=== PATIENT | female | born 1960 | race Caucasian/White ===

== ENCOUNTER → 2017-08-18 | Day surgery (SDC) | payer OTHER ==
[~2017-08-18] MED LIST: APREPITANT 40 MG CAP ONE; FLURBIPROFEN 0.03% OPHT SOLN 2.5 ML BTL ONE; HYALURONIDASE/LIDOCAINE/BUPIVACAINE 5 ML SYR ONE; MIDAZOLAM HCL 2 MG/2 ML VIAL ONE; ONDANSETRON HCL 4 MG/2 ML VIAL IV PUSH ONE; PHENYLEPHRINE HCL 2.5 % OPTH SOLN 15 ML BTL ONE; PROPOFOL 100 MG/10 ML INJ IV ONE; TETRACAINE 0.5% OPTH SOLN 15 ML BTL ONE; TROPICAMIDE 1% OPHT SOLN 15 ML BTL ONE; [UNRECOGNIZED DRUG - SUPPLY]
--- NOTE | 2017-08-22 09:16 | MP ---
cc: Jones Katz MD DATE OF OPERATION: 08/18/2017 PREOPERATIVE DIAGNOSIS: Proliferative diabetic retinopathy and nonclearing vitreous hemorrhage, left eye. POSTOPERATIVE DIAGNOSIS: Proliferative diabetic retinopathy and nonclearing vitreous hemorrhage, left eye. PROCEDURE PERFORMED: Pars plana vitrectomy, endolaser, left eye. ANESTHESIA: MAC. SURGEON: Dr. Jones Katz MD COMPLICATIONS: None. PROCEDURE: After informed consent was obtained, the patient was given retrobulbar anesthesia in the preoperative area. She was then brought to the operating room, prepared and draped in the usual sterile fashion. A wire lid speculum was placed in the patient's left eye. A 270 degree conjunctival peritomy was then performed using 0.12 forceps and Mis scissors. Excellent hemostasis was obtained with bipolar cautery. Scleral mixon were then made 3 mm posterior to the corneoscleral limbus in the lower temporal, supratemporal and superonasal quadrants. A 6-0 Vicryl mattress suture was placed in the right lower temporal valentina. 23-gauge vitrectomy cannulas were then placed through these sites and an infusion cannula was placed lower temporally. There had been a previous vitrectomy performed. 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 A pick and intraocular forceps were used to peel these membranes. A complete air-fluid exchange was performed and eventual endolaser was placed inferiorly. Silicone oil was then used to fill the vitreous cavity. The two superior vitrectomy cannulas were removed and each site was closed with an interrupted 6-0 Vicryl suture. The infusion cannula was then removed and the mattress suture was tied up permanently. The conjunctiva were repaired using two interrupted 7-0 Vicryl sutures. Subconjunctival injections of dexamethasone and Ancef were placed. Atropine drops, Maxitrol and a patch and shield were then applied. The patient tolerated the procedure well. There were no complications. She will follow up tomorrow with Dr. Alfred in [place] and with me next week. Jones Katz MD TAB/TL , 08:59 AM , 09:15 AM
== END | disposition home or self-care (01) ==
LOC: ESDC 11:45
PROVIDERS: ATTEND Ophthalmology Retina Specialist
DX: E11.3532 Type 2 diabetes mellitus with proliferative diabetic retinopathy with traction retinal detachment not involving the macula, left eye (principal); H43.12 Vitreous hemorrhage, left eye
CPT/HCPCS: 00145; 67113; 82948; J2250; J2405; J3010; J8501